=== PATIENT | male | born 1965 | race Two or more races ===

== ENCOUNTER 2017-10-03 14:18 | Inpatient (IN) | payer MEDICAID ==
[~2017-10-03] VITALS: Ht 175.3 cm; Wt 77.1 kg
--- NOTE | 2017-10-03 14:30 | NUR ---
BB PRIVATE EMS FROM [facility] SENT BY DR BENITEZ, FOR SACRAL WOUND EVAL. NAD NOTED, VSS, RESP EVEN AND UNLABORED, AT BS.
--- NOTE | 2017-10-03 15:20 | NUR ---
BLOOD SAMPLE AND URINE SAMPLE SENT TO LAB.
[2017-10-03 15:37] LABS: BASOPHILS % (AUTO) 0.3 % (0.0-2.0); EOSINOPHILS # (AUTO) 0.1 /CMM (0.0-0.7); HEMATOCRIT 24 % (39-51); HEMOGLOBIN 7.9 g/dL (13.5-17.5); LYMPHOCYTES # (AUTO) 2.5 /CMM (0.8-4.8); MEAN CORPUSCULAR HEMOGLOBIN 28 PG (26.0-33.0); MEAN CORPUSCULAR HGB CONC 34 g/dl (31.0-36.0); MEAN CORPUSCULAR VOLUME 82 fL (80-96); MONOCYTES % (AUTO) 7.6 % (2.0-12.0); NEUTROPHILS # (AUTO) 9.7 /CMM (1.8-8.9); NEUTROPHILS % (AUTO) 72.1 % (43.0-81.0); PLATELET COUNT (AUTO) 546 /CMM (150-450); RDW COEFFICIENT OF VARIATION 16.9 (11.5-15.0); RED BLOOD CELL COUNT(AUTO) 2.85 MIL/uL (4.5-6.0); WHITE BLOOD COUNT (AUTO) 13.3 K/uL (4.3-11.0)
[2017-10-03 15:46] LABS: INR 1.12 (0.85-1.15)
[2017-10-03 15:49] LABS: CALCIUM, SERUM 8.4 mg/dL (8.5-10.1); CARBON DIOXIDE 26 mmol/L (21-32); CHLORIDE 103 mmol/L (98-107); CREATININE 0.5 mg/dL (0.6-1.3); GLUCOSE 106 mg/dL (74-106); POTASSIUM 3.4 mmol/L (3.5-5.1); SODIUM SERUM 141 mmol/L (136-145); UREA NITROGEN, BLOOD 7 mg/dL (7-18)
[2017-10-03 15:51] LABS: BILIRUBIN,URINE Negative (NEGATIVE); BLOOD, URINE Trace-intact Ery/uL (NEGATIVE); COLOR,URINE Yellow (YELLOW); KETONES,URINE Negative (NEGATIVE); LEUKOCYTE ESTERASE ,URINE Moderate (NEGATIVE); NITRITE, URINE Positive (NEGATIVE); PH,URINE 6.5 (5.0-8.0); PROTEIN,URINE Trace mg/dl (NEGATIVE); UGLUCOSE Negative (NEGATIVE)
[2017-10-03 15:54] LABS: APPEARANCE,URINE SLIGHTLY CLOUDY (CLEAR)
[2017-10-03 15:59] LABS: BACTERIA,URINE Many /HPF (None Seen); CALCIUM OXALATE CRYSTALS,UR Few /HPF (None Seen)
[2017-10-03 16:00] LABS: SQUAMOUS EPITHELIAL CELL,UR Few /HPF (None Seen)
[2017-10-03 16:18] LABS: TROPONIN I < 0.017 ng/mL (0.00-0.056)
[2017-10-03 16:21] LABS: ALANINE AMINOTRANSFERASE 19 U/L (12-78); ALBUMIN 1.6 g/dL (3.4-5.0); ALKALINE PHOSPHATASE 191 U/L (46-116); ASPARTATE AMINOTRANSFERASE 23 U/L (15-37); BILIRUBIN,DIRECT 0.2 mg/dL (0.0-0.2); BILIRUBIN,TOTAL 0.4 mg/dL (0.2-1.0); TOTAL PROTEIN, SERUM 9.1 g/dL (6.4-8.2)
--- NOTE | 2017-10-03 17:29 | NUR ---
CALLED [employer] EXCELSIOR MACHINE OPERATOR WAS PAGED.
[2017-10-03] MEDS ORDERED: PIPERACILLIN /TAZOBACTAM 3.375 G in IV D5W 50 ML IV ONE (17:30)
[2017-10-03] MEDS ORDERED: VANCOMYCIN 1 GM in IV D5W 250 ML IV ONE (17:30)
[2017-10-03] MEDS ORDERED: POTASSIUM CHLORIDE 20 MEQ TAB.PRT.SR PO ONE ×2 (17:30→17:35)
[2017-10-03] MEDS ORDERED: METH500T PO (17:57)
[2017-10-03] MEDS ORDERED: OXYC-128 PO (17:57)
[2017-10-03] MEDS ORDERED: CITA20TA11 PO (17:57)
[2017-10-03] MEDS ORDERED: ASCO500C18 PO (17:57)
[2017-10-03] MEDS ORDERED: MULT-213 PO (17:57)
[2017-10-03] MEDS ORDERED: MIDO10TA PO (17:57)
[2017-10-03] MEDS ORDERED: OLAN10TA3 PO (17:57)
[2017-10-03] MEDS ORDERED: LEVE500T9 PO (17:57)
[2017-10-03] MEDS ORDERED: ZINC220T PO (17:57)
--- NOTE | 2017-10-03 18:28 | NUR ---
REPORT RAUL TO STEPH SOTO GOING TO 323 MS
--- NOTE | 2017-10-03 19:00 | NUR ---
MS RN NOTES RECEIVED PATIENT FROM ER VIA JOSE F. PATIENT ALERT, ORIENTED X4. PATIENT ORIENTED TO ROOM AND FLOOR. CALL LIGHT WITHIN REACH. BED IN LOW LOCKED POSITION. WILL ENDORSE CARE TO PM SHIFT.
[2017-10-03] MEDS ORDERED: Z GUARD REMEDY 2 OZ OINT TP PRN (19:30)
[2017-10-03] MEDS ORDERED: MAG HYDROX/AL HYDROX/SIMETH 30 ML UDC PO PRN (19:30)
[2017-10-03] MEDS ORDERED: ONDANSETRON HCL/PF 4 MG/2 ML VIAL IVP PRN (19:30)
[2017-10-03] MEDS ORDERED: MAGNESIUM HYDROXIDE 30 ML UDC PO PRN (19:30)
[2017-10-03] MEDS ORDERED: ACETAMINOPHEN 325 MG TABLET PO PRN (19:30)
--- NOTE | 2017-10-03 19:30 | NUR ---
MS RN OPENING NOTE RECEIVED PATIENT IN BED, ALERT ORIENTED X4. RESPIRATIONS EVEN AND UNLABORED, ON ROOM AIR, DENIES SOB. NO APPARENT DISTRESS AND DISCOMFORT NOTED AT THIS TIME. R AC 20G PATIENT AND INTACT. SOLER CATHETER AND COLOSTOMY BAG FOR ELIMINATION. SAFETY MEASURES IN PLACE. CALL LIGHT WITHIN EASY REACH, BED IN LOW LOCKED POSITION, SIDE RAILS UPX2. WILL CONTINUE TO MONITOR.
[2017-10-03 20:00] VITALS: BP 116/72
[2017-10-03] MEDS: METHOCARBAMOL (500MG) 500 MG TABLET PO SCH (20:33)
[2017-10-03] MEDS: oxyCODONE/APAP (5/325 MG) 1 UDTAB TABLET PO PRN (20:34)
[2017-10-03] MEDS: LEVETIRACETAM (250 MG) 250 MG TABLET PO SCH (20:41)
[2017-10-03] MEDS: IV D5/0.45 NACL 1,000 ML IV PRN (20:42)
[2017-10-03] MEDS: OLANZAPINE 10 MG TABLET PO SCH (22:31)
[2017-10-03] MEDS: PIPERACILLIN /TAZOBACTAM 3.375 G in IV D5W 50 ML IV SCH (23:35)
[2017-10-03] MEDS: ZOLPIDEM TARTRATE 5 MG TABLET PO PRN (23:36)
[2017-10-04] VITALS (8 sets, daily range): BP systolic 112–128; BP diastolic 63–92
[2017-10-04] MEDS ORDERED: PIPERACILLIN /TAZOBACTAM 4.5 G in IV NS 0.9% 50 ML IV SCH ×2
[2017-10-04] MEDS: VANCOMYCIN 1 GM in IV D5W 250 ML IV SCH ×3 (02:31→20:37)
[2017-10-04] MEDS: HYDROCODONE/APAP 5/325MG 1 EACH TABLET PO PRN ×2 (02:33→08:24)
[2017-10-04] MEDS: METHOCARBAMOL (500MG) 500 MG TABLET PO SCH ×3 (05:45→20:38)
[2017-10-04] MEDS: PIPERACILLIN /TAZOBACTAM 3.375 G in IV D5W 50 ML IV SCH ×3 (05:52→18:18)
--- NOTE | 2017-10-04 07:45 | NUR ---
MS RN CLOSING NOTE PATIENT IN BED, ALERT ORIENTED X4. RESPIRATIONS EVEN AND UNLABORED, ON ROOM AIR, DENIES SOB. NO APPARENT DISTRESS AND DISCOMFORT NOTED AT THIS TIME. R AC 20G WITH FLUIDS RUNNING AT 75 ML/HR, PATIENT AND INTACT. SOLER CATHETER AND COLOSTOMY BAG FOR ELIMINATION, URINE OUTPUT OF 750 ML. PATIENT KEPT CLEAN AND COMFORTABLE. SAFETY MEASURES IN PLACE. CALL LIGHT WITHIN EASY REACH, BED IN LOW LOCKED POSITION, SIDE RAILS UPX2. WILL ENDORSE TO AM SHIFT FOR CONTINUITY OF CARE..
--- NOTE | 2017-10-04 07:54 | NUR ---
MS RN: INITIAL NOTE RECEIVED PT A/OX4. ON MS. NO DISTRESS NOTED. NO SOB NOTED. PAIN CONTROLLED WITH PAIN MEDICATIONS. COLOSTOMY IN PLACE. SOLER IN PLACE AND DRAINING. PARAPLEGIC. ON REGULAR DIET. R AC #20 RUNNING D5 1/2 NS AT 75ML/HR. SITE CLEAR AND PATENT. RESTING COMFORTABLY IN BED. CALL LIGHT WITHIN REACH.
[2017-10-04 08:10] LABS: BASOPHILS % (AUTO) 0.3 % (0.0-2.0); EOSINOPHILS # (AUTO) 0.2 /CMM (0.0-0.7); EOSINOPHILS % (AUTO) 1.9 % (0.0-6.0); HEMATOCRIT 21 % (39-51); LYMPHOCYTES # (AUTO) 2.4 /CMM (0.8-4.8); LYMPHOCYTES % (AUTO) 21.7 % (20.0-44.0); MEAN CORPUSCULAR HEMOGLOBIN 27 PG (26.0-33.0); MEAN CORPUSCULAR HGB CONC 32 g/dl (31.0-36.0); MEAN CORPUSCULAR VOLUME 85 fL (80-96); MONOCYTES # (AUTO) 0.9 /CMM (0.1-1.30); MONOCYTES % (AUTO) 8.2 % (2.0-12.0); NEUTROPHILS # (AUTO) 7.6 /CMM (1.8-8.9); NEUTROPHILS % (AUTO) 67.9 % (43.0-81.0); PLATELET COUNT (AUTO) 535 /CMM (150-450); RDW COEFFICIENT OF VARIATION 18.2 (11.5-15.0); RED BLOOD CELL COUNT(AUTO) 2.44 MIL/uL (4.5-6.0); WHITE BLOOD COUNT (AUTO) 11.2 K/uL (4.3-11.0)
[2017-10-04 08:15] LABS: HEMOGLOBIN 6.7 g/dL (13.5-17.5)
[2017-10-04] MEDS: MULTIVIT, IRON, MIN NO. 8, FA 1 TAB PO SCH (08:22)
[2017-10-04] MEDS: ZINC SULFATE 220 MG CAPSULE PO SCH (08:22)
[2017-10-04] MEDS: LEVETIRACETAM (250 MG) 250 MG TABLET PO SCH ×2 (08:22→20:37)
[2017-10-04] MEDS: ASCORBIC ACID 500 MG TABLET PO SCH (08:22)
[2017-10-04] MEDS: CITALOPRAM HYDROBROMIDE 20 MG TABLET PO SCH (08:23)
[2017-10-04] MEDS: MIDODRINE HCL (5MG) 5 MG TABLET PO SCH ×3 (08:24→17:05)
[2017-10-04] MEDS: IV D5/0.45 NACL 1,000 ML IV PRN (08:25)
[2017-10-04 09:11] LABS: BAND % (MANUAL) 1 % (0.0-5.0); LYMPHOCYTES % (MANUAL) 25 % (16-48); MONOCYTES % (MANUAL) 11 % (0-11.0); NEUTROPHILS % (MANUAL) 63 (42-76)
[2017-10-04 09:19] LABS: BILIRUBIN,TOTAL 0.5 mg/dL (0.2-1.0); CREATININE 0.5 mg/dL (0.6-1.3); MAGNESIUM 1.9 mg/dL (1.8-2.4); PHOSPHORUS 4.5 mg/dL (2.5-4.9); POTASSIUM 3.5 mmol/L (3.5-5.1); TOTAL PROTEIN, SERUM 8.5 g/dL (6.4-8.2)
[2017-10-04 09:40] LABS: ALBUMIN 1.4 g/dL (3.4-5.0)
[2017-10-04] MEDS ORDERED: FEE PK DOSING 1 MIN EA MC ONE (10:06)
--- NOTE | 2017-10-04 18:00 | NUR ---
BLOOD TRANSFUSION 1 UNIT COMPLETE. VS STABLE. DOCUMENTED.
[2017-10-04] MEDS: oxyCODONE/APAP (5/325 MG) 1 UDTAB TABLET PO PRN (18:19)
--- NOTE | 2017-10-04 18:49 | NUR ---
MS RN: CLOSING NOTE PT TOOK ALL MEDICATIONS ON TIME. NO ADVERSE REACTIONS NOTED. NO SOB NOTED. PAIN CONTROLLED WITH PAIN MEDICATIONS. COLOSTOMY BAG CLEANED AND CHANGED. OCCULT STOOL COLLECTED. SOLER OUT PUT 1900. PATENT AND DRAINING. R AC#18 RUNNING D5 1/2 NS AT 75ML/HR. SITE CLEAR AND PATENT. BLOOD TRANSFUSION COMPLETE. 1 UNIT GIVEN. WOUND CARE DONE. SURGICAL CONSULT DONE BY MD JOSELO CISNEROS. FOR POSSIBLE DEBRIDEMENT TOMORROW. RESTING COMFORTABLY IN BED. CALL LIGHT WITHIN REACH.
--- NOTE | 2017-10-04 19:25 | NUR ---
MS RN OPENING NOTE RECEIVED PATIENT IN BED, ALERT ORIENTED X4. RESPIRATIONS EVEN AND UNLABORED, ON ROOM AIR, DENIES SOB. NO APPARENT DISTRESS AND DISCOMFORT NOTED AT THIS TIME. R AC 20G WITH FLUIDS RUNNING AT 75 ML/HR, PATIENT AND INTACT. SOLER CATHETER AND COLOSTOMY BAG FOR ELIMINATION, URINE OUTPUT OF 750 ML. PATIENT KEPT CLEAN AND COMFORTABLE. SAFETY MEASURES IN PLACE. CALL LIGHT WITHIN EASY REACH, BED IN LOW LOCKED POSITION, SIDE RAILS UPX2. WILL CONTINUE TO MONITOR.
--- NOTE | 2017-10-04 20:00 | NUR ---
PATIENT TEMPERATURE IS 100.4. PATIENT'S BLOOD CAME BACK POSITIVE FOR GRAM POSITIVE COCCUS IN CLUSTERS. COOLING MEASURES IMPLEMENTED. WILL CONTINUE TO MONITOR.
--- NOTE | 2017-10-04 21:00 | NUR ---
TYLENOL ADMINISTERED AT 2037. RECHECKED FEVER DECREASED TO 98.6. PHYSICIAN NOTIFIED. NO NEW ORDERS AT THIS TIME. WILL CONTINUE TO MONITOR.
[2017-10-04] MEDS: OLANZAPINE 10 MG TABLET PO SCH (21:25)
[2017-10-05] MEDS: PIPERACILLIN /TAZOBACTAM 3.375 G in IV D5W 50 ML IV SCH ×5 (00:12→23:57)
[2017-10-05] MEDS: ZOLPIDEM TARTRATE 5 MG TABLET PO PRN ×2 (00:12→21:25)
[2017-10-05] MEDS: VANCOMYCIN 1 GM in IV D5W 250 ML IV SCH ×2 (04:37→20:51)
[2017-10-05] MEDS: METHOCARBAMOL (500MG) 500 MG TABLET PO SCH ×3 (04:37→20:53)
[2017-10-05] MEDS: oxyCODONE/APAP (5/325 MG) 1 UDTAB TABLET PO PRN ×2 (04:39→15:02)
[2017-10-05 05:03] LABS: CALCIUM, SERUM 8.8 mg/dL (8.5-10.1); CREATININE 0.7 mg/dL (0.6-1.3); POTASSIUM 3.7 mmol/L (3.5-5.1)
[2017-10-05] MEDS: IV D5/0.45 NACL 1,000 ML IV PRN (06:38)
--- NOTE | 2017-10-05 07:36 | NUR ---
MS RN CLOSING NOTE PATIENT IN BED, SLEEPING COMFORTABLE, EASILY AROUSED WITH VERBAL STIMULI. ORIENTED X4. ABLE TO MAKE NEEDS KNOWN. RESPIRATIONS EVEN AND UNLABORED, ON ROOM AIR, DENIES SOB. NO APPARENT DISTRESS AND DISCOMFORT NOTED AT THIS TIME. R AC 20G WITH FLUIDS RUNNING AT 75 ML/HR, PATIENT AND INTACT. SOLER CATHETER AND COLOSTOMY BAG FOR ELIMINATION. PATIENT KEPT CLEAN AND COMFORTABLE. SAFETY MEASURES IN PLACE. CALL LIGHT WITHIN EASY REACH, BED IN LOW LOCKED POSITION, SIDE RAILS UPX2. WILL ENDORSE TO AM SHIFT FOR CONTINUATION OF CARE.
--- NOTE | 2017-10-05 07:42 | NUR ---
MS RN: INITIAL NOTE RECEIVED PT A/OX4. NO DISTRESS NOTED. NO SOB NOTED. PAIN CONTROLLED WITH PAIN MEDICATIONS. COLOSTOMY BAG IN PLACE. SOLER IN PLACE AND PATENT. ON REGULAR DIET. R AC #18 RUNNING D5 1/2 NS AT 75ML/HR. SITE CLEAR AND PATENT. RESTING COMFORTABLY IN BED. CALL LIGHT WITHIN REACH.
[2017-10-05 08:00] VITALS: BP 103/63
[2017-10-05] MEDS: ASCORBIC ACID 500 MG TABLET PO SCH (08:52)
[2017-10-05] MEDS: ZINC SULFATE 220 MG CAPSULE PO SCH (08:52)
[2017-10-05] MEDS: HYDROCODONE/APAP 5/325MG 1 EACH TABLET PO PRN (08:53)
[2017-10-05] MEDS: MIDODRINE HCL (5MG) 5 MG TABLET PO SCH ×3 (08:53→17:22)
[2017-10-05] MEDS: CITALOPRAM HYDROBROMIDE 20 MG TABLET PO SCH (08:53)
[2017-10-05] MEDS: LEVETIRACETAM (250 MG) 250 MG TABLET PO SCH ×2 (08:53→20:53)
[2017-10-05] MEDS: MULTIVIT, IRON, MIN NO. 8, FA 1 TAB PO SCH (08:53)
[2017-10-05] MEDS: PROSOURCE / PROSTAT (PYXIS) 30 ML UDC PO SCH ×2 (08:59→17:22)
[2017-10-05] MEDS ORDERED: MORPHINE SULFATE INJ 2 MG/ML DISP.SYRIN IV PRN (09:00)
[2017-10-05 09:35] LABS: BASOPHILS % (AUTO) 0.3 % (0.0-2.0); EOSINOPHILS # (AUTO) 0.2 /CMM (0.0-0.7); EOSINOPHILS % (AUTO) 2.2 % (0.0-6.0); HEMATOCRIT 26 % (39-51); LYMPHOCYTES # (AUTO) 2.3 /CMM (0.8-4.8); LYMPHOCYTES % (AUTO) 23.1 % (20.0-44.0); MEAN CORPUSCULAR HEMOGLOBIN 27 PG (26.0-33.0); MEAN CORPUSCULAR HGB CONC 32 g/dl (31.0-36.0); MEAN CORPUSCULAR VOLUME 86 fL (80-96); MONOCYTES # (AUTO) 0.8 /CMM (0.1-1.30); MONOCYTES % (AUTO) 8.1 % (2.0-12.0); NEUTROPHILS # (AUTO) 6.6 /CMM (1.8-8.9); NEUTROPHILS % (AUTO) 66.3 % (43.0-81.0); PLATELET COUNT (AUTO) 534 /CMM (150-450); RDW COEFFICIENT OF VARIATION 17.4 (11.5-15.0); RED BLOOD CELL COUNT(AUTO) 2.98 MIL/uL (4.5-6.0)
[2017-10-05] MEDS: HYDROMORPHONE INJ 0.5 MG/0.5 ML SYRINGE IV PRN ×2 (12:08→20:19)
[2017-10-05 12:34] LABS: OCCULT BLOOD STOOL NEGATIVE (NEGATIVE)
[2017-10-05 16:00] VITALS: BP 103/63
[2017-10-05] MEDS: LACTOBACILLUS RHAMNOSUS GG 1 EACH CAP.SPRINK PO SCH (17:21)
--- NOTE | 2017-10-05 18:36 | NUR ---
MS RN: CLOSING NOTE PT TOOK ALL MEDICATIONS ON TIME. NO ADVERSE REACTIONS NOTED. NO SOB NOTED. PAIN CONTROLLED WITH PAIN MEDICATIONS. AWAITING MD JOSELO SCHULTE FOR POSSIBLE BED SIDE DEBRIDEMENT. PLACED ON CONTACT ISOLATION FOR MRSA + IN BLOOD. WOUND CARE DONE. ON REGULAR DIET. R AC #18 RUNNING D5 1/2 NS AT 75ML/HR. SITE CLEAR AND PATENT. NO REDNESS OR BLEEDING NOTED. SOLER CATH IN PLACE AND DRAINING. OUTPUT 2000ML. RESTING COMFORTABLY IN BED. CALL LIGHT WITHIN REACH.
--- NOTE | 2017-10-05 19:00 | NUR ---
RN NOTES RECEIVE PT IN BED A/O X 4, NO S/S OF DISTRESS, SAFETY MEASURES IN PLACE, CALL LIGHT WITHIN REACH, WILL CONTINUE TO MONITOR.
[2017-10-05 20:00] VITALS: BP 115/69
[2017-10-05] MEDS: OLANZAPINE 10 MG TABLET PO SCH (21:25)
[2017-10-06] MEDS: HYDROMORPHONE INJ 0.5 MG/0.5 ML SYRINGE IV PRN (01:11)
[2017-10-06] MEDS: IV D5/0.45 NACL 1,000 ML IV PRN (02:50)
[2017-10-06 04:00] VITALS: BP 106/69
[2017-10-06] MEDS: oxyCODONE/APAP (5/325 MG) 1 UDTAB TABLET PO PRN ×2 (04:57→13:18)
--- NOTE | 2017-10-06 04:57 | NUR ---
MS/RN NOTES PATIENT COMPLAINED OF PAIN IN THE SACRAL AREA, 6/10 LEVEL OF PAIN. MEDICATED WITH PERCOCET 1 TAB ORDERED. WILL MONITOR
[2017-10-06] MEDS: METHOCARBAMOL (500MG) 500 MG TABLET PO SCH ×3 (05:21→20:39)
[2017-10-06] MEDS: PIPERACILLIN /TAZOBACTAM 3.375 G in IV D5W 50 ML IV SCH ×4 (05:23→23:58)
--- NOTE | 2017-10-06 06:30 | NUR ---
MS RN CLOSING NOTES PT COMFORTABLY ASLEEP IN BED AND EASILY AWAKEN, NOT IN RESPIRATORY DISTRESS, TOLERATING ROOM AIR 02 SAT 98% HEAD OF BED ELEVATED AT ALL TIMES FOR BETTER LUNG EXPANSION AND GOOD CIRCULATION. STABLE, NOT APPEAR IN DISTRESS. NEEDS ATTENDED AND ANTICIPATED. KEPT CLEAN AND DRY AND COMFORTABLE. NURSING CARE RENDERED. NO C/O OF PAIN. ON LOW BED TO ENSURE SAFETY, CALL LIGHT WITHIN REACH, WILL ENDORSE TO THE NEXT SHIFT CONTINUE PLAN OF CARE.
[2017-10-06 08:00] VITALS: BP 96/72
--- NOTE | 2017-10-06 08:02 | NUR ---
RN OPENING NOTES RECEIVED PATIENT AWAKE ALERT AND VERBALLY RESPONSIVE, ABLE TO MAKE NEEDS KNOWN. RESPIRATIONS EVEN AND UNLABORED, NO DISTRESS NOTED. PATIENT WITH CONTINUED PAIN MANAGEMENT, IV ACCESS PATENT AND INTACT, NO REDNESS OR INFILTRATION NOTED.COLOSTOMY BAG IN PLACE. KEPT CLEAN DRY AND COMFORTABLE, CALL LIGHT WITHIN EASY REACH WILL CONTINUE TO MONITOR
[2017-10-06 08:16] LABS: CALCIUM, SERUM 8.7 mg/dL (8.5-10.1); CREATININE 0.7 mg/dL (0.6-1.3); POTASSIUM 3.6 mmol/L (3.5-5.1)
[2017-10-06] MEDS: ZINC SULFATE 220 MG CAPSULE PO SCH (08:45)
[2017-10-06] MEDS: CITALOPRAM HYDROBROMIDE 20 MG TABLET PO SCH (08:45)
[2017-10-06] MEDS: MULTIVIT, IRON, MIN NO. 8, FA 1 TAB PO SCH (08:45)
[2017-10-06] MEDS: VANCOMYCIN 1 GM in IV D5W 250 ML IV SCH ×2 (08:45→22:29)
[2017-10-06] MEDS: MIDODRINE HCL (5MG) 5 MG TABLET PO SCH ×3 (08:46→17:17)
[2017-10-06] MEDS: ASCORBIC ACID 500 MG TABLET PO SCH (08:46)
[2017-10-06] MEDS: LACTOBACILLUS RHAMNOSUS GG 1 EACH CAP.SPRINK PO SCH ×2 (08:46→17:06)
[2017-10-06] MEDS: LEVETIRACETAM (250 MG) 250 MG TABLET PO SCH ×2 (08:47→20:39)
[2017-10-06] MEDS: PROSOURCE / PROSTAT (PYXIS) 30 ML UDC PO SCH ×2 (09:39→17:06)
[2017-10-06] MEDS ORDERED: HYDROGEL DRESSING 90 GM TUBE TP PRN (13:30)
--- NOTE | 2017-10-06 13:38 | NUR ---
WOUND CARE CONSULT; PT PRESENTS WITH MULTIPLE WOUNDS, PRESENT ON ADMISSION INCLUDING STAGE 4 RT BUTTOCK WITH NECROTIC TISSUE AND MALODOR, PURULENT DRAINAGE, STAGE 4 SACRAL ULCER, STAGE 3 LEFT BUTTOCK ULCER, STAGE 4 RT ANKLE ULCER, ESCHARS TO FEET, ALL PRESENT ON ADMISSION. PT NOTED TO HAVE COLOSTOMY. PT IS PARAPLEGIC. PT TO BE PLACED ON [facility] ISOFLEX LOW AIRLOSS BED. ALL SKIN PROTECTION AND WOUND RECOMMENDATIONS DISCUSSED WITH NURSING STAFF. CURRENT TJ SCORE IS 10. MD IN AGREEMENT WITH PLAN OF CARE. Addendum: 10/06/17 at 1343 by ALETA TONY WNDNU Amended: Links added.
[2017-10-06] MEDS: HYDROGEL DRESSING 90 GM TUBE TP SCH (17:05)
[2017-10-06] MEDS: DAKINS QUARTER STRENGTH (0.125%) 480 ML BOTTLE TOP SCH (17:06)
[2017-10-06] MEDS: MORPHINE SULFATE INJ 4 MG/ML DISP.SYRIN IV PRN ×2 (17:47→22:20)
[2017-10-06] MEDS ORDERED: SILVER NITRATE APPLICATOR 1 EA BOX TP ONE (18:30)
[2017-10-06] MEDS ORDERED: LIDOCAINE 1%-EPI 1:100,000 20 ML VIAL TP ONE (18:30)
--- NOTE | 2017-10-06 19:35 | NUR ---
RN CLOSING NOTES PATIENT AWAKE ALERT AND VERBALLY RESPONSIVE, ABLE TO MAKE NEEDS KNOWN. RESPIRATIONS EVEN AND UNLABORED, NO DISTRESS NOTED. PATIENT WITH CONTINUED PAIN MANAGEMENT, IV ACCESS PATENT AND INTACT, NO REDNESS OR INFILTRATION NOTED.COLOSTOMY BAG IN PLACE. KEPT CLEAN DRY AND COMFORTABLE, CALL LIGHT WITHIN EASY REACH ENDORSED TO NEXT SHIFT FOR CONTINUITY OF CARE, PATIENT WITH PROCEDURE CONSENT NEEDED WILL ASSIST WITH PROCEDURE AND OBTAINING SUPPLIES NEEDED, ENDORSED TO NEXT SHIFT RN FOR CONTINUITY OF CARE
[2017-10-06 20:05] VITALS: BP 167/73
[2017-10-06 20:13] VITALS: BP 136/79
[2017-10-06] MEDS: OLANZAPINE 10 MG TABLET PO SCH (22:18)
--- NOTE | 2017-10-06 22:52 | NUR ---
recieved alert and orientated placed on a ISO flex mattress with 2 nurse assist IV infusing Lab called latest Vanci is 18
[2017-10-07] MEDS: IV D5/0.45 NACL 1,000 ML IV PRN ×2 (03:12→18:01)
[2017-10-07] MEDS: METHOCARBAMOL (500MG) 500 MG TABLET PO SCH ×3 (04:43→21:48)
--- NOTE | 2017-10-07 05:22 | NUR ---
MR. RUSHING IS ALERT AND ORIENTATED, FLAT AFFECT, NEVER ONCE SMILING. WILL VERBALIZE HIS NEEDS, ENJOYED APPLE JUICE,SWALLOWS W/O PROBLEMS. MEDICATED X1 WITH MORPHINE 2MG IV AND THIS WAS EFFECTIVE LAST DOSE BEING 2200. vANCO LEVEL AT 8PM WAS 18 VANCO GIVEN. ON A ISO FLEX MATTRESS. MD LOONEY'S NEEDED LIST OF SUPPLIES FOUND AND PLACED IN TUB AT THE BEDSIDE CONSENT SIGNED. THE LIDOCAINE IS IN THE CASSETTE NOT TO BE LEFT AT THE BEDSIDE. SOLER DRAINAGE CLEAR YELLOW. PATIENT NOT GOOD ABOUT BEING TURRNED AND REPOSITIONED PREFERS LYING ON HIS BACK,EXPLAINED TO HIM THAT THE SPECIAL MATTRESS WILL HELP BUT HE STILL NEEDS TO BE REPOSITIONED COLOSTOMY WITH FLATUS NO ALTA THIS 12 HOURS GAUZE WRAP ON LIANA ANKLES CDI BUTTOCKS WITH MIPLEX
[2017-10-07] MEDS: PIPERACILLIN /TAZOBACTAM 3.375 G in IV D5W 50 ML IV SCH ×3 (05:43→18:01)
--- NOTE | 2017-10-07 07:15 | NUR ---
ms rn initial notes Received patient in bed, asleep, head of bed elevated, no sob or distress noted, colostomy in placed, corey attached to drainage bag. IV intact and patent with IVF infusing well. No facial grimace noted. Call light with in patient reach, will continue to monitor accordingly.
[2017-10-07 08:00] VITALS: BP_SYST 104; BP_DIAS 56; BP_DIAS 78
[2017-10-07] MEDS: VANCOMYCIN 1 GM in IV D5W 250 ML IV SCH ×2 (08:38→21:48)
[2017-10-07] MEDS: PROSOURCE / PROSTAT (PYXIS) 30 ML UDC PO SCH ×2 (09:48→16:51)
[2017-10-07] MEDS: CITALOPRAM HYDROBROMIDE 20 MG TABLET PO SCH (09:49)
[2017-10-07] MEDS: LACTOBACILLUS RHAMNOSUS GG 1 EACH CAP.SPRINK PO SCH ×2 (09:49→16:46)
[2017-10-07] MEDS: LEVETIRACETAM (250 MG) 250 MG TABLET PO SCH ×2 (09:49→21:48)
[2017-10-07] MEDS: MIDODRINE HCL (5MG) 5 MG TABLET PO SCH ×3 (09:49→16:46)
[2017-10-07] MEDS: MULTIVIT, IRON, MIN NO. 8, FA 1 TAB PO SCH (09:49)
[2017-10-07] MEDS: ZINC SULFATE 220 MG CAPSULE PO SCH (09:49)
[2017-10-07] MEDS: ASCORBIC ACID 500 MG TABLET PO SCH (09:49)
[2017-10-07] MEDS: HYDROGEL DRESSING 90 GM TUBE TP SCH (09:50)
[2017-10-07] MEDS: DAKINS QUARTER STRENGTH (0.125%) 480 ML BOTTLE TOP SCH (09:50)
[2017-10-07] MEDS: MORPHINE SULFATE INJ 4 MG/ML DISP.SYRIN IV PRN ×2 (10:52→16:50)
[2017-10-07 12:43] LABS: CALCIUM, SERUM 8.9 mg/dL (8.5-10.1); CREATININE 0.7 mg/dL (0.6-1.3); POTASSIUM 3.4 mmol/L (3.5-5.1)
[2017-10-07 12:44] LABS: BASOPHILS % (AUTO) 0.3 % (0.0-2.0); EOSINOPHILS # (AUTO) 0.2 /CMM (0.0-0.7); EOSINOPHILS % (AUTO) 2.3 % (0.0-6.0); HEMATOCRIT 24 % (39-51); HEMOGLOBIN 7.6 g/dL (13.5-17.5); LYMPHOCYTES # (AUTO) 1.8 /CMM (0.8-4.8); LYMPHOCYTES % (AUTO) 21.1 % (20.0-44.0); MEAN CORPUSCULAR HEMOGLOBIN 27 PG (26.0-33.0); MEAN CORPUSCULAR HGB CONC 32 g/dl (31.0-36.0); MEAN CORPUSCULAR VOLUME 86 fL (80-96); MONOCYTES # (AUTO) 0.7 /CMM (0.1-1.30); MONOCYTES % (AUTO) 8.7 % (2.0-12.0); NEUTROPHILS # (AUTO) 5.7 /CMM (1.8-8.9); NEUTROPHILS % (AUTO) 67.6 % (43.0-81.0); PLATELET COUNT (AUTO) 546 /CMM (150-450); RDW COEFFICIENT OF VARIATION 18.1 (11.5-15.0); RED BLOOD CELL COUNT(AUTO) 2.77 MIL/uL (4.5-6.0); WHITE BLOOD COUNT (AUTO) 8.5 K/uL (4.3-11.0)
[2017-10-07 16:00] VITALS: BP 128/84
[2017-10-07] MEDS ORDERED: POTASSIUM CHLORIDE 20 MEQ TAB.PRT.SR PO SCH (18:30)
--- NOTE | 2017-10-07 19:15 | NUR ---
ms rn closing notes All needs provided, attended, and anticipated. call light with in patient reach, endorsed to next shift RN to continue care.
--- NOTE | 2017-10-07 19:40 | NUR ---
MSRN AWAKE, COMFORT NEEDS ATTENDED. REPOSITIONED. NO FURTHER NEEDS MADE.PRESENT IVF INFUSING WELL. CONTINUED.
[2017-10-07 20:00] VITALS: BP 121/78
[2017-10-07 20:57] VITALS: BP 121/78
[2017-10-07] MEDS: OLANZAPINE 10 MG TABLET PO SCH (21:49)
[2017-10-08] MEDS: PIPERACILLIN /TAZOBACTAM 3.375 G in IV D5W 50 ML IV SCH ×4 (00:15→17:13)
[2017-10-08] MEDS: MORPHINE SULFATE INJ 4 MG/ML DISP.SYRIN IV PRN ×4 (00:26→23:38)
--- NOTE | 2017-10-08 00:35 | NUR ---
MSRN REMAINS UNCHANGED. SLEPT WELL.
[2017-10-08] MEDS: METHOCARBAMOL (500MG) 500 MG TABLET PO SCH ×3 (06:36→21:39)
--- NOTE | 2017-10-08 06:45 | NUR ---
ABDULKADIR SOLER OUTPUT 2100CC. REFUSED TO HAVE AM CARE, NO OTHER NEEDS MADE.
--- NOTE | 2017-10-08 07:10 | NUR ---
ms rn initial notes received patient in bed, asleep, head of bed elevated, no SOB or distress noted, on room air and tolerated well. IV intact and patent with IVF infusing well. Alert and oriented x 4, verbally responsive and able to make needs known. No facial grimace noted. colostomy in placed on the left side of the abdomen. corey in placed attached to drainage bag. Call light with in patient reach, will continue to monitor accordingly.
[2017-10-08 07:32] LABS: CALCIUM, SERUM 9.1 mg/dL (8.5-10.1); CREATININE 0.7 mg/dL (0.6-1.3); POTASSIUM 4.1 mmol/L (3.5-5.1)
[2017-10-08 08:00] VITALS: BP 110/72
[2017-10-08] MEDS: VANCOMYCIN 1 GM in IV D5W 250 ML IV SCH ×2 (08:25→21:39)
[2017-10-08] MEDS: CITALOPRAM HYDROBROMIDE 20 MG TABLET PO SCH (08:26)
[2017-10-08] MEDS: ZINC SULFATE 220 MG CAPSULE PO SCH (08:26)
[2017-10-08] MEDS: ASCORBIC ACID 500 MG TABLET PO SCH (08:26)
[2017-10-08] MEDS: LEVETIRACETAM (250 MG) 250 MG TABLET PO SCH ×2 (08:26→21:39)
[2017-10-08] MEDS: MIDODRINE HCL (5MG) 5 MG TABLET PO SCH ×3 (08:26→17:10)
[2017-10-08] MEDS: MULTIVIT, IRON, MIN NO. 8, FA 1 TAB PO SCH (08:26)
[2017-10-08] MEDS: LACTOBACILLUS RHAMNOSUS GG 1 EACH CAP.SPRINK PO SCH ×2 (08:26→17:10)
[2017-10-08] MEDS: DAKINS QUARTER STRENGTH (0.125%) 480 ML BOTTLE TOP SCH (08:28)
[2017-10-08] MEDS: HYDROGEL DRESSING 90 GM TUBE TP SCH (08:29)
[2017-10-08] MEDS: IV D5/0.45 NACL 1,000 ML IV PRN (08:31)
[2017-10-08] MEDS: PROSOURCE / PROSTAT (PYXIS) 30 ML UDC PO SCH ×2 (08:36→17:11)
[2017-10-08] MEDS: oxyCODONE/APAP (5/325 MG) 1 UDTAB TABLET PO PRN (12:18)
[2017-10-08 16:00] VITALS: BP 121/80
--- NOTE | 2017-10-08 19:29 | NUR ---
ms rn closing notes All needs provided, attended, and anticipated. Endorsed to next shift RN to continue care.
--- NOTE | 2017-10-08 19:30 | NUR ---
RN OPENING NOTES RECEIVED REPORT FROM AM SHIFT NURSE, PATIENT S/P DEBRIDEMENT, ALL PATIENT'S NEEDS ATTENDED TO AT THIS TIME, NO SOB, BREATHING EVEN AND UNLABORED, IN NO ACUTE DISTRESS BUT WITH C/O PAIN EXPECTED FROM PROCEDURE. ALL PATIENT'S NEEDS ATTENDED TO AT THIS TIME. CALL LIGHT PLACED WITHIN EASY REACH. WILL CONTINUE TO MONITOR.
[2017-10-08 20:00] VITALS: BP 115/77
--- NOTE | 2017-10-08 20:00 | NUR ---
RN NOTE INFORMED PATIENT THAT PICTURES NEED TO BE TAKEN FOR DOCUMENTATION OF HIS WOUNDS, PER PATIENT HE WOULD LIKE PICTURES TO BE TAKEN WHEN DRESSINGS ARE CHANGED IN THE AM, EXPLAINED TO PATIENT RISKS AND BENEFITS BUT PATIENT INSISTS TO HAVE PICTURES TAKEN UPON DRESSING CHANGE. ALL PATIENT'S NEEDS ATTENDED TO AT THIS TIME. WILL CONTINUE TO MONITOR.
[2017-10-08] MEDS: OLANZAPINE 10 MG TABLET PO SCH (21:39)
[2017-10-08] MEDS: HYDROCODONE/APAP 5/325MG 1 EACH TABLET PO PRN (22:16)
[2017-10-08] MEDS ORDERED: MEROPENEM 1 G in IV NS 0.9% 100 ML IV ONE (22:30)
[2017-10-09] MEDS ORDERED: MEROPENEM 1 G VIAL IV ONE (00:09)
[2017-10-09] MEDS ORDERED: COLLAGENASE 15 GM TUBE TP PRN (02:30)
[2017-10-09] MEDS: MORPHINE SULFATE INJ 4 MG/ML DISP.SYRIN IV PRN ×8 (03:48→23:07)
[2017-10-09] MEDS: IV D5/0.45 NACL 1,000 ML IV PRN ×2 (03:52→18:35)
[2017-10-09 04:40] VITALS: BP 111/69
--- NOTE | 2017-10-09 04:40 | NUR ---
MS MURCIA INITIAL NOTES RECEIVED PATIENT VIA BED, RECEIVED BEDSIDE REPORT FROM NURSE LANZA. PATIENT AWAKE, ALERT, AND ORIENTED, DROWSY. NO RESPIRATORY DISTRESS NOTED, ON ROOM AIR. DENIES PAIN OR DISCOMFORT. PER NURSE WOUND PICTURES WERE NOT TAKEN PER MD ORDERS. WITH RAC 20G SL PATENT AND INTACT. F/C PATENT AND INTACT, DRAINING BY GRAVITY. ORIENTED TO ROOM AND CALL LIGHT SYSTEM. TURNED AND REPOSITIONED. SIDE RAILS UP AND LOCKED. BED KEPT AT LOWEST POSITION. CALL LIGHT KEPT WITHIN EASY REACH. WILL CONTINUE TO MONITOR. Addendum: 10/09/17 at 0551 by DEMOND TIRADO RN CLARIFICATION, PER NURSE PATIENT REFUSED WOUND DRESSING CHANGES AND PICTURES.
--- NOTE | 2017-10-09 04:45 | NUR ---
RN NOTE BEDSIDE REPORT GIVEN TO VIRY NURSE. PATIENT IN STABLE CONDITION, ALERT AND ORIENTED X 4, VERBALLY RESPONSIVE, IN NO ACUTE DISTRESS, NO C/O PAIN AT THIS TIME. ENDORSED PATIENT'S NEEDS FOR CONTINUITY OF CARE.
[2017-10-09] MEDS: METHOCARBAMOL (500MG) 500 MG TABLET PO SCH ×3 (05:00→21:38)
[2017-10-09] MEDS: MEROPENEM 1 G in IV NS 0.9% 100 ML IV SCH ×3 (05:12→21:38)
--- NOTE | 2017-10-09 07:30 | NUR ---
INITIAL RECEIVED PATIENT ON BED PATIENT AWAKE, ALERT, AND ORIENTED, DROWSY. NO RESPIRATORY DISTRESS NOTED, ON ROOM AIR. DENIES PAIN OR DISCOMFORT. PER NURSE WOUND PICTURES WERE NOT TAKEN AFTER SURGERY PER MD ORDERS. RAC 20G SL AT 75 MLS/HR CLEAN, DRY AND INTACT. F/C PATENT AND INTACT, DRAINING BY GRAVITY. ORIENTED TO ROOM AND CALL LIGHT SYSTEM. TURNED AND REPOSITIONED. SIDE RAILS UP AND LOCKED. BED KEPT AT LOWEST POSITION. CALL LIGHT KEPT WITHIN EASY REACH. WILL CONTINUE TO MONITOR.
--- NOTE | 2017-10-09 07:33 | NUR ---
MS RN CLOSING NOTES NO SIGNIFICANT CHANGES OVERNIGHT. PATIENT RESTING COMFORTABLY. NO RESPIRATORY DISTRESS NOTED, ON ROOM AIR. SIDE RAILS UP AND LOCKED. BED KEPT AT LOWEST POSITION. F/C PATENT AND INTACT, DRAINING BY GRAVITY. IVF RUNNING. CALL LIGHT KEPT WITHIN EASY REACH. ENDORSED TO AM NURSE TO TAKE PICTURES DURING DRESSING CHANGE.
[2017-10-09 08:00] VITALS: BP 108/69
[2017-10-09] MEDS ORDERED: COLLAGENASE 15 GM TUBE TP SCH (09:00)
[2017-10-09] MEDS: PROSOURCE / PROSTAT (PYXIS) 30 ML UDC PO SCH ×2 (09:03→17:37)
[2017-10-09] MEDS: ZINC SULFATE 220 MG CAPSULE PO SCH (09:04)
[2017-10-09] MEDS: LACTOBACILLUS RHAMNOSUS GG 1 EACH CAP.SPRINK PO SCH ×2 (09:04→17:38)
[2017-10-09] MEDS: ASCORBIC ACID 500 MG TABLET PO SCH (09:04)
[2017-10-09] MEDS: CITALOPRAM HYDROBROMIDE 20 MG TABLET PO SCH (09:04)
[2017-10-09] MEDS: MIDODRINE HCL (5MG) 5 MG TABLET PO SCH ×3 (09:04→17:38)
[2017-10-09] MEDS: MULTIVIT, IRON, MIN NO. 8, FA 1 TAB PO SCH (09:04)
[2017-10-09] MEDS: LEVETIRACETAM (250 MG) 250 MG TABLET PO SCH ×2 (09:04→21:38)
[2017-10-09] MEDS: HYDROGEL DRESSING 90 GM TUBE TP SCH (09:07)
[2017-10-09] MEDS: DAKINS QUARTER STRENGTH (0.125%) 480 ML BOTTLE TOP SCH (09:08)
[2017-10-09] MEDS: HYDROCODONE/APAP 5/325MG 1 EACH TABLET PO PRN ×3 (09:33→21:50)
[2017-10-09 10:31] LABS: CALCIUM, SERUM 9.4 mg/dL (8.5-10.1); CREATININE 0.7 mg/dL (0.6-1.3); POTASSIUM 3.8 mmol/L (3.5-5.1)
[2017-10-09 12:00] VITALS: BP 106/69
[2017-10-09] MEDS: VANCOMYCIN 0.75 GM in IV NS 0.9% 250 ML IV SCH (13:59)
[2017-10-09] MEDS ORDERED: THERAHONEY GEL 1.5 OZ TUBE TP PRN (15:00)
[2017-10-09 16:00] VITALS: BP 118/73
--- NOTE | 2017-10-09 18:50 | NUR ---
CLOSING PT STABLE AFIBRILE ALL SHIFT NEEDS MET ENDORSING TO NEXT SHIFT RN BED IN LOW POSITION CALL LIGHT NEXT TO PT
[2017-10-09 20:00] VITALS: BP 108/69
--- NOTE | 2017-10-09 20:00 | NUR ---
a/a/ o TIMES 4 NO ACUTE DISTRESS NOTED OR VOICED, WILL MEDICATE NEEDED FOR COMFORT
[2017-10-09] MEDS: OLANZAPINE 10 MG TABLET PO SCH (21:38)
[2017-10-10] MEDS: VANCOMYCIN 0.75 GM in IV NS 0.9% 250 ML IV SCH ×3 (00:30→23:36)
[2017-10-10 04:00] VITALS: BP 112/73
[2017-10-10] MEDS: HYDROCODONE/APAP 5/325MG 1 EACH TABLET PO PRN ×2 (04:06→23:36)
[2017-10-10] MEDS: MORPHINE SULFATE INJ 4 MG/ML DISP.SYRIN IV PRN ×4 (04:06→20:23)
[2017-10-10] MEDS: METHOCARBAMOL (500MG) 500 MG TABLET PO SCH ×3 (05:13→21:00)
[2017-10-10] MEDS: MEROPENEM 1 G in IV NS 0.9% 100 ML IV SCH ×3 (05:14→21:00)
[2017-10-10 06:41] LABS: CALCIUM, SERUM 9.1 mg/dL (8.5-10.1); CREATININE 0.7 mg/dL (0.6-1.3); POTASSIUM 3.4 mmol/L (3.5-5.1)
--- NOTE | 2017-10-10 07:29 | NUR ---
MS RN OPENING NOTES RECEIVED PATIENT ASLEEP IN BED, AWAKENS EASILY. A/O X 3, DENIES PAIN OR DISCOMFORTS AT THIS TIME. ON ROOM AIR, BREATHING EVEN AND UNLABORED. IV ACCESS ON RAC INTACT AND PATENT, IVF OF D5/1/2 NS RUNNING, NO SIGNS OF INFILTRATION NOTED. SOLER IN PLACE AND PATENT, DRAINING LIGHT YELLOW COLORED URINE BY GRAVITY TO BEDSIDE URINARY BAG. HOB ELEVATED. BED IN LOW AND LOCKED POSITION. CALL LIGHT WITHIN EASY REACH. WILL CONTINUE TO MONITOR PT ACCORDINGLY
[2017-10-10 08:00] VITALS: BP 111/64
[2017-10-10] MEDS ORDERED: THERAHONEY GEL 1.5 OZ TUBE TP SCH (09:00)
[2017-10-10] MEDS: ZINC SULFATE 220 MG CAPSULE PO SCH (09:21)
[2017-10-10] MEDS: ASCORBIC ACID 500 MG TABLET PO SCH (09:21)
[2017-10-10] MEDS: LEVETIRACETAM (250 MG) 250 MG TABLET PO SCH ×2 (09:21→21:00)
[2017-10-10] MEDS: CITALOPRAM HYDROBROMIDE 20 MG TABLET PO SCH (09:22)
[2017-10-10] MEDS: MIDODRINE HCL (5MG) 5 MG TABLET PO SCH ×3 (09:22→16:23)
[2017-10-10] MEDS: PROSOURCE / PROSTAT (PYXIS) 30 ML UDC PO SCH ×4 (09:22→21:00)
[2017-10-10] MEDS: MULTIVIT, IRON, MIN NO. 8, FA 1 TAB PO SCH (09:22)
[2017-10-10] MEDS: LACTOBACILLUS RHAMNOSUS GG 1 EACH CAP.SPRINK PO SCH ×2 (09:22→16:23)
[2017-10-10] MEDS: DAKINS QUARTER STRENGTH (0.125%) 480 ML BOTTLE TOP SCH (09:23)
[2017-10-10] MEDS: HYDROGEL DRESSING 90 GM TUBE TP SCH (09:24)
[2017-10-10 10:57] LABS: BASOPHILS % (AUTO) 0.1 % (0.0-2.0); EOSINOPHILS # (AUTO) 0.2 /CMM (0.0-0.7); EOSINOPHILS % (AUTO) 3.4 % (0.0-6.0); HEMATOCRIT 24 % (39-51); HEMOGLOBIN 7.7 g/dL (13.5-17.5); LYMPHOCYTES # (AUTO) 1.9 /CMM (0.8-4.8); MEAN CORPUSCULAR HEMOGLOBIN 28 PG (26.0-33.0); MEAN CORPUSCULAR HGB CONC 32 g/dl (31.0-36.0); MEAN CORPUSCULAR VOLUME 86 fL (80-96); MONOCYTES # (AUTO) 0.4 /CMM (0.1-1.30); MONOCYTES % (AUTO) 5.7 % (2.0-12.0); NEUTROPHILS # (AUTO) 4.2 /CMM (1.8-8.9); NEUTROPHILS % (AUTO) 62.8 % (43.0-81.0); PLATELET COUNT (AUTO) 508 /CMM (150-450); RDW COEFFICIENT OF VARIATION 18.5 (11.5-15.0); WHITE BLOOD COUNT (AUTO) 6.6 K/uL (4.3-11.0)
[2017-10-10] MEDS ORDERED: POTASSIUM CHLORIDE 20 MEQ TAB.PRT.SR PO SCH (11:00)
--- NOTE | 2017-10-10 11:41 | NUR ---
RN NOTES DR ROMERO ORDER TO FOLLOW-UP PICC LINE INSERTION FOR PT. CALLED NURSE PRESCRIPTION BENEFIT SPECIALIST MENG AND INFORMED HER THAT PT NEEDS PICC LINE AND SAID THAT SHE WILL TAKE CARE OF IT. WILL F/U.
[2017-10-10] MEDS: IV D5/0.45 NACL 1,000 ML IV PRN (11:49)
--- NOTE | 2017-10-10 13:57 | NUR ---
RN NOTES PATIENT FOR PICC LINE INSERTION, CONSENT SIGNED BY PT. PICC LINE DOUBLE LUMEN INSERTED BY NURSE ART HAYES AT RIGHT UPPER ARM.. CHEST X-RAY ORDERED TO VERIFY PROPER PLACEMENT. WILL CONTINUE TO MONITOR
[2017-10-10 16:00] VITALS: BP 120/70
--- NOTE | 2017-10-10 16:56 | NUR ---
RN NOTES PT FOR DISCHARGE TODAY. CALLED [facility] AND SPOKE TO JUMA AND SAID THAT SHE WILL CALL US BACK ONCE THEY HAVE BED AVAILABLE [facility].
--- NOTE | 2017-10-10 18:58 | NUR ---
MS RN CLOSING NOTES PATIENT AWAKE AND LYING COMFORTABLY AT MODERATE HIGH BACKREST. A/O X 4, SAME VERBALLY RESPONSIVE. ON ROOM AIR, BREATHING EVEN WITH NO SOB NOTED. IV ACCESS ON RAC INTACT AND PATENT WITH IVF OF D5/1/2 NS RUNNING, NO SIGNS OF INFILTRATION NOTED. PT IS S/P INSERTION OF PICC LINE ON DEBO, PLACEMENT CONFIRMED BY CXR. SOLER IN PLACE AND PATENT, DRAINING LIGHT YELLOW COLORED URINE BY GRAVITY TO BEDSIDE URINARY BAG. COLOSTOMY IN PLACE WITH SMALL AMOUNT OF SOFT FORM STOOL NOTED ON COLOSTOMY BAG. HOB KEPT ELEVATED. BED IN LOW AND LOCKED POSITION. CALL LIGHT WITHIN EASY REACH. PT FOR DISCHARGE TONIGHT IF THERE WILL BE AVAILABLE BED AT [facility]. APPARENTLY ONE PT THERE WILL BE DC TONIGHT AT 9PM. WILL ENDORSED TO FORMING ROLL OPERATOR HEAVY DUTY NURSE TO F/U [facility] AT 9PM.
[2017-10-10 20:00] VITALS: BP 136/88
--- NOTE | 2017-10-10 20:15 | NUR ---
CALLED THE PLACE TO BE RECIEVING HIM POSSIBLE TONIGHT AND THEY STILL DO NOT HAVE A FREE BED YET THEY WILL RETURN MY CALL WHEN THEY DO. HE LATER DID RETURN MY CALL AND STILL WAITING FOR A FREE BED. PATIENT ALERT AND ORIENTATED ISOLATION FOR MRSA OF THE WOUNDS
[2017-10-10 20:48] VITALS: BP 136/88
[2017-10-10] MEDS: OLANZAPINE 10 MG TABLET PO SCH (22:17)
[2017-10-11 00:51] VITALS: BP 117/72
[2017-10-11] MEDS: MEROPENEM 1 G in IV NS 0.9% 100 ML IV SCH (02:03)
[2017-10-11] MEDS: MORPHINE SULFATE INJ 4 MG/ML DISP.SYRIN IV PRN (02:10)
--- NOTE | 2017-10-11 02:31 | NUR ---
AWAKE ALERT ORIENTATED X4 AWARE HE IS BEING TRANSFERED AT 3AM. HE IS OKAY WITH THIS EARLY AM TRANSFER. BELONGS WENT THROUGH AND ALL ACCOUNTABLE, COLOSTOMY WITH SMALL AMOUNT BROWN STOOL SOFT. Richard PATENT RIGHT UPPER ARM MIDLINE PATENT AND FLUSHED AND CDI
--- NOTE | 2017-10-11 03:05 | NUR ---
PATIENT IS ALERT AND ORIENTATED AMBULANCE HERE TO TAKE HIM TO [facility] BELONGING IN [facility] [employer] ON PHONE AND WHANAU SUPPORT WORKER IN HIS HAND REPORT GIVEN TO THE DRIVERS FACILTY CALLED ANT [phone] AND MADE AWARE THAT HE WAS ON HIS WAY AT 0300.
== END 2017-10-11 03:27 | DRG 710 ==
LOC: ER 14:22 → MED 18:43 → MEDSG1 10-09 04:50
PROVIDERS: ADMIT Internal Medicine; ATTEND Internal Medicine
DX: A41.9 Sepsis, unspecified organism (principal); E43 Unspecified severe protein-calorie malnutrition; L89.214 Pressure ulcer of right hip, stage 4; E87.0 Hyperosmolality and hypernatremia; G82.20 Paraplegia, unspecified; N12 Tubulo-interstitial nephritis, not specified as acute or chronic; B96.20 Unspecified Escherichia coli [E. coli] as the cause of diseases classified elsewhere; D63.8 Anemia in other chronic diseases classified elsewhere; E87.6 Hypokalemia; G40.909 Epilepsy, unspecified, not intractable, without status epilepticus; F17.210 Nicotine dependence, cigarettes, uncomplicated; F32.9 Major depressive disorder, single episode, unspecified; K59.03 Drug induced constipation; T40.2X5A Adverse effect of other opioids, initial encounter; Y92.89 Other specified places as the place of occurrence of the external cause; E88.09 Other disorders of plasma-protein metabolism, not elsewhere classified; D47.3 Essential (hemorrhagic) thrombocythemia; Z68.25 Body mass index [BMI] 25.0-25.9, adult; E11.69 Type 2 diabetes mellitus with other specified complication; M86.9 Osteomyelitis, unspecified; B95.62 Methicillin resistant Staphylococcus aureus infection as the cause of diseases classified elsewhere; B96.4 Proteus (mirabilis) (morganii) as the cause of diseases classified elsewhere; B95.2 Enterococcus as the cause of diseases classified elsewhere; Z16.12 Extended spectrum beta lactamase (ESBL) resistance; I10 Essential (primary) hypertension; N31.9 Neuromuscular dysfunction of bladder, unspecified
CPT/HCPCS: 36415; 71045-TC; 80048-TC; 80053-TC; 80076-TC; 80202-TC; 81000-TC; 82272-TC; 82542; 83605-TC; 83735-TC; 84100-TC; 84484-TC; 85025-TC; 85730-TC; 86850-TC; 86921-TC; 87040-TC; 87070-TC; 87081-TC; 87086-TC; 87186-TC; 88304-TC; 88305-TC; 88311-TC; 88312-TC; 93307-TC; A4216; A4606; A6248; A6253; A6402; A6403; C1751; J2185; J2270; J2543; J3370; J3490; J7030; J7040; J7050; J7060; P9016-BL; Z7610